=== PATIENT | female | born 2000 | race Caucasian/White ===

== ENCOUNTER → 2021-10-02 13:22 | Outpatient (CLI) | payer OTHER, SELFPAY ==
--- NOTE | ~2021-10-02 | US_ITS ---
EXAMINATION: US pelvic complete DATE: 10/02/2021 13:39 INDICATION: Amenorrhea Comparison:No prior studies for comparison. TECHNIQUE: Multiple transabdominal sonographic images of the pelvis performed. FINDINGS: The uterus measures 5.9 x 2.1 x 4.1 cm. The endometrial complex measures 4 mm. The right ovary measures 3.1 x 1.6 x 2.3 cm and the left ovary measures 2.4 x 1.7 x 2 cm. There are small follicles in each ovary. Normal doppler signal in both ovaries. There is no free fluid in the pelvis. There are no abnormal masses seen on either side. IMPRESSION: 1. Unremarkable pelvic ultrasound. Reviewed, dictated and finalized at location B.
== END ==
PROVIDERS: PCP Family Medicine; Visit Provider Obstetrics & Gynecology Gynecology
DX: N91.2 Amenorrhea, unspecified (principal)
CPT/HCPCS: 76856

== ENCOUNTER 2024-09-06 15:14 | Emergency (ER) | payer OTHER, SELFPAY ==
[2024-09-06 15:16] VITALS: BP 108/66; PULSE 87; RESP 16; TEMP 36.4; O2SAT 98
--- OUTSIDE RECORDS SUMMARY | 2024-09-06 15:16 | XMS_ITS | Encounter Summary ---
Author Organization [facility] Address [address] [place] [address] Care Team Providers Care Supervisor Cutting Department Name Role Phone Rachael Rojo MD Primary Care Provider Encounter Details Date Type Department Care Team (Late st Contact Info) Description 03/05/2020 Lab Requisition [facility] [address] [place] [id number] Porfirio Feng MD [address] [place] [address] Social History Tobacco Use Types Packs/Day Years Used Date Smoking Tobacco: Never Smokeless Tobacco: Never Alcohol Use Standard Drinks/Week Comments No 0 (1 standard drink = 0.6 oz pur e alcohol) Comments Unknown Sex and Gender Information Value Date Recorded Sex Assigned at Not on file Legal Sex Female 5:39 AM SANITATION LEAD Gender Identity Not on file Sexual Orientation Not on file documented as of this encounter Plan of Treatment Not on file documented as of this encounter Procedures Procedure Name Priority Date/Time Associated Diagnosis Comments DERMATOPATHOLOGY Routine 03/01/2020 3:27 AM SANITATION LEAD documented in this encounter Results * DERMATOPATHOLOGY (03/01/2020 3:27 AM SANITATION LEAD) Case Report Dermatopathology Report Case: [id number] Authorizing Provider: Porfirio Feng MD Collected: 03/01/2020 03:27 AM Ordering Location: [facility] Lab Received: 03/05/2020 06:06 AM Pathologist: Donna Peoples MD Specimen: Skin, left lower back 2:10 PM [facility] DERMATOPATHOLOGY LABORATORY Final Diagnosis Specimen A. SKIN, left lower back: COMPOUND MELANOCYTIC NEVUS (D22.5) 2:10 PM [facility] DERMATOPATHOLOGY LABORATORY at 1410 SANITATION LEAD Clinical History Nevus R/O atypia. Path # [id number]. 2:10 PM [facility]ERMAT[facility] Gross Description Specimen A: Received is one formalin filled container labeled with the patient's name and designated left lower back. The specimen consists of a shave biopsy measuring [id number], bisected. Jar 0. 2:10 PM [facility]ERMATOPATH[facility] Microscopic Description Specimen A. SKIN, left lower back: There are nests of melanocytes at the dermal-epidermal junction and within the dermis. 2:10 PM [facility] DERMATOPATHOLOGY [facility]OR[facility] Disclaimer An external and internal positive and negative controls are appropriate for the histochemical, immunohistochemical and immunofluorescence stain(s) in this case (if any), except where stated explicitly. The performance characteristics of the stain(s) cited in this report were developed and its performance characteristic determined by the Dermatopathology Laboratory at [facility], directed by Dr. Toshia Reid. These tests need not be, and therefore are not, approved by the [place] Food and Drug Administration. The tests are used for clinical purposes. Billing Codes Specimen Charges Stain Charges 72544 1 1 2:10 PM [facility]ERMATOPATH[facility] Embedded Images 2:10 PM [facility]MAT[facility] Pathology/Cytolo gy TISSUE SPECIMEN FROM SKIN / Unknown 03/01/2020 3:27 AM SANITATION LEAD 03/05/2020 6:06 AM SANITATION LEAD us Porfirio Feng MD LAB - PATHOLOGY/CYTOLOGY ORDER JIN Final Result DERMATOPATHOLOGY LABORATORY [facility] - Department of Dermatology [facility] Medicine [address] [place] [address], [address] [phone] documented in this encounter Visit Diagnoses Not on filedocumented in this encounter Care Teams Supervisor Cutting Department Relationship Specialty Start Date End Date Rachael Rojo MD [address] [place], [place] [id number] PCP - General 05/27/17 documented as of this encounter
--- OUTSIDE RECORDS SUMMARY | 2024-09-06 15:16 | XMS_ITS | Clinical Summary ---
Author Organization [facility] Address [address] [place] [address] Care Team Providers Care Plumbing Foreman Name Role Phone Rachael Rojo MD Primary Care Provider [phone] Source Comments [facility],non-owned Affiliates and Associated Physician Practices is amultiple site organization consisting of ambulatory clinics and hospital sitesin [place], [place], [place] and [place]. This disclosure is being madepursuant to the Care Everywhere program and may not contain all information available regarding this patient. Last updated 17.[facility] [employer] Allergies No known active allergies Medications * Be aware that medications may not be up to date on this document. Alwaysverify current medications with the patient. medroxyPROGESTE Ervin (DEPO-PROVERA) 150 MG/ML vial ADM 1 ML IM Q 12 WKS 0 04/07/2017 Active spironolactone (ALDACTONE) 50 MG tablet Take 2 tablets by mouth once daily 60 tablet 4 06/03/2017 Active tretinoin (RETIN-A) 0.025 % creamIndication s:Acne vulgaris Apply to affected area at bedtime Pea sized amount to entire face at night. 30 days supply. 45 g 11 06/03/2017 Active Active Problems Problem Noted Date Diagnosed Date Acne vulgaris 06/03/2017 Immunizations Immunization Administration Dates Next Due INFLUENZA VACCINE 02/15/2017 Social History Tobacco Use Types Packs/Day Years Used Date Smoking Tobacco: Never Smokeless Tobacco: Never Alcohol Use Standard Drinks/Week Comments No 0 (1 standard drink = 0.6 oz pur e alcohol) Comments Unknown Sex and Gender Information Value Date Recorded Sex Assigned at Not on file Legal Sex Female 5:39 AM ARMATURE STRAIGHTENER Gender Identity Not on file Sexual Orientation Not on file Last Filed Vital Signs Vital Sign Reading Time Taken Comments Blood Pressure 111/50 02/23/2014 1:38 PM ARMATURE STRAIGHTENER Pulse 88 02/23/2014 1:38 PM ARMATURE STRAIGHTENER Temperature 36.5 C (97.7 F) 02/23/2014 1:38 PM ARMATURE STRAIGHTENER Respiratory Rate 20 02/23/2014 1:38 PM ARMATURE STRAIGHTENER Oxygen Saturation 100% 02/23/2014 1:38 PM ARMATURE STRAIGHTENER Inhaled Oxygen Concentration - - Weight 57.6 kg (127 lb) 02/19/2016 9:27 AM ARMATURE STRAIGHTENER Height 170.2 cm (5' 7) 02/19/2016 9:27 AM ARMATURE STRAIGHTENER Body Mass Index 19.89 02/19/2016 9:27 AM ARMATURE STRAIGHTENER Plan of Treatment Health Maintenance Due Date Last Done Comments HIV SCREENING 07/03/2014 HPV VACCINE (1 - 3-dose series) 07/03/2014 CHLAMYDIA/GONORRHEA SCREENING 2015 HEPATITIS C SCREENING 06/29/2017 DTAP/TDAP/TD VACCINES (1 - Tdap) 07/03/2018 HEPATITIS B VACCINE (1 of 3 - 19+ 3-dose series) 07/03/2018 COVID-19 VACCINE (1 - 2023-2 5 season) 2023 DEPRESSION SCREENING 02/16/2024 INFLUENZA VACCINE (#1) 2024 02/15/2017 ZOSTER VACCINE (1 of 2) 07/03/2049 HIB VACCINE Aged Out No longer eligi ble based on patient's age to complete this topic MENINGOCOCCAL (Group B) VACC INE SHARED DECISION-MAKING Aged Out No longer eligibl e based on patient's age to complete this topic MENINGOCOCCAL GROUPS A/C/Y/W VACCINE Aged Out No longer eligible b ased on patient's age to complete this topic PNEUMOCOCCAL VACCINE Aged Out No long er eligible based on patient's age to complete this topic Insurance Member Subscriber Plan / Payer (Ef fective 2020-Present) Name:Li Tai R Relation to Subscriber:Child Name:CHANTELL TAI R Subscriber ID:Not on file Date of :1970 (Home) Address: [address] [place] [address] Payer ID:[id number] (NAIC) Type:HMO Address: [place] [id number] Member Subscriber Plan / Payer (Ef fective 2014-Present) Name:Li Tai R Member ID:Not on file Relation to Subscriber:Child Name:LI TAI Date of :1970 (Home) Address: [address] [place] [address] Payer ID:[id number] (NAIC) Type:HMO Address: [place] [id number] Care Teams Plumbing Foreman Relationship Specialty Start Date End Date Rachael Rojo MD [address] [place] [address] PCP - General 05/27/17
--- OUTSIDE RECORDS SUMMARY | 2024-09-06 15:42 | XMS_ITS | Clinical Summary ---
Author Organization [facility] Address [address] [facility] [address] [facility] [place] [address] Care Team Providers Care Diet Assistant Name Role Phone Rachael Rojo MD Primary Care Provider [phone] Source Comments [facility],non-owned Affiliates and Associated Physician Practices is amultiple site organization consisting of ambulatory clinics and hospital sitesin [place], [place], [place] and [place]. This disclosure is being madepursuant to the Care Everywhere program and may not contain all information available regarding this patient. Last updated 17.[facility] [employer] Allergies No known active allergies Medications * [...] on file Legal Sex Female 5:39 AM HEALTH AND WELLNESS INSTRUCTOR Gender Identity Not on file Sexual Orientation Not on file Last Filed Vital Signs Vital Sign Reading Time Taken Comments Blood Pressure 111/50 02/23/2014 1:38 PM HEALTH AND WELLNESS INSTRUCTOR Pulse 88 02/23/2014 1:38 PM HEALTH AND WELLNESS INSTRUCTOR Temperature 36.5 C (97.7 F) 02/23/2014 1:38 PM HEALTH AND WELLNESS INSTRUCTOR Respiratory Rate 20 02/23/2014 1:38 PM HEALTH AND WELLNESS INSTRUCTOR Oxygen Saturation 100% 02/23/2014 1:38 PM HEALTH AND WELLNESS INSTRUCTOR Inhaled Oxygen Concentration - - Weight 57.6 kg (127 lb) 02/19/2016 9:27 AM HEALTH AND WELLNESS INSTRUCTOR Height 170.2 cm (5' 7) 02/19/2016 9:27 AM HEALTH AND WELLNESS INSTRUCTOR Body Mass Index 19.89 02/19/2016 9:27 AM HEALTH AND WELLNESS INSTRUCTOR Plan of Treatment Health Maintenance Due Date [...] file Date of :1970 (Home) Address: [address] [place] [address] Payer ID:[id number] (NAIC) Type:HMO Address: [place] [id number] Member Subscriber Plan / Payer (Ef fective 2014-Present) Name:Li Tai R Member ID:Not on file Relation to Subscriber:Child Name:LI TAI Date of :1970 (Home) Address: [address] [place] [address] Payer ID:[id number] (NAIC) Type:HMO Address: [place] [id number] Care Teams Diet Assistant Relationship Specialty Start Date End Date Rachael Rojo MD [address] [place] [address] PCP - General 05/27/17
--- OUTSIDE RECORDS SUMMARY | 2024-09-06 15:42 | XMS_ITS | Encounter Summary ---
Author Organization [facility] Address [address] [facility] [place] [address] Care Team Providers Care Patient Safety Tech Name Role Phone Rachael Rojo MD Primary Care Provider Encounter Details Date Type Department Care Team (Late st Contact Info) Description 03/05/2020 Lab Requisition [facility] [address] [place] [phone] Porfirio Feng MD [address] [address] Social History Tobacco Use Types Packs/Day Years Used Date Smoking Tobacco: Never Smokeless Tobacco: Never Alcohol Use Standard Drinks/Week Comments No 0 (1 standard drink = 0.6 oz pur e alcohol) Comments Unknown Sex and Gender Information Value Date Recorded Sex Assigned at Not on file Legal Sex Female 5:39 AM WEBFED OFFSET PRESS OPERATOR Gender Identity Not on file Sexual Orientation Not on file documented as of this encounter Plan of Treatment Not on file documented as of this encounter Procedures Procedure Name Priority Date/Time Associated Diagnosis Comments DERMATOPATHOLOGY Routine 03/01/2020 3:27 AM WEBFED OFFSET PRESS OPERATOR documented in this encounter Results * DERMATOPATHOLOGY (03/01/2020 3:27 AM WEBFED OFFSET PRESS OPERATOR) Case Report Dermatopathology Report Case: [id number] Authorizing Provider: Porfirio Feng MD Collected: 03/01/2020 03:27 AM Ordering Location: [facility] Received: 03/05/2020 06:06 AM Pathologist: Donna Peoples MD Specimen: Skin, left lower back 2:10 PM [facility] DERMATOPATHOLOGY LABORATORY Final Diagnosis Specimen A. SKIN, left lower back: COMPOUND MELANOCYTIC NEVUS (D22.5) 2:10 PM [facility] DERMATOPATHOLOGY LABORATORY at 1410 WEBFED OFFSET PRESS OPERATOR Clinical History Nevus R/O atypia. Path # [id number]. 2:10 PM [facility] DERMATOPATHOLOGY LABORATORY Gross Description Specimen A: Received is one formalin filled container labeled with the patient's name and designated left lower back. The specimen consists of a shave biopsy measuring [id number], bisected. Jar 0. 2:10 PM [facility] DERMATOPATHOLOGY LABORATORY Microscopic Description Specimen A. SKIN, left lower back: There are nests of melanocytes at the dermal-epidermal junction and within the dermis. 2:10 PM [facility] DERMATOPATHOLOGY LABORATORY Disclaimer An external and internal positive and negative controls are appropriate for the histochemical, immunohistochemical and immunofluorescence stain(s) in this case (if any), except where stated explicitly. The performance characteristics of the stain(s) cited in this report were developed and its performance characteristic determined by the Dermatopathology Laboratory at [facility], directed by Dr. Toshia Reid. These tests need not be, and therefore are not, approved by the [place] Food and Drug Administration. The tests are used for clinical purposes. Billing Codes Specimen Charges Stain Charges 75234 1 1 2:10 PM [facility] DERMATOPATHOLOGY [facility]ORATORY Embedded Images 2:10 PM [facility] DERMATOPATHOLOGY LABORATORY Pathology/Cytolo gy TISSUE SPECIMEN FROM SKIN / Unknown 03/01/2020 3:27 AM WEBFED OFFSET PRESS OPERATOR 03/05/2020 6:06 AM WEBFED OFFSET PRESS OPERATOR us Porfirio Feng MD LAB - PATHOLOGY/CYTOLOGY ORDER JIN Final Result DERMATOPATHOLOGY LABORATORY [facility] - Department of Dermatology [facility] Medicine [address] [place] [address], [address] Floor [address] [phone] documented in this encounter Visit Diagnoses Not on filedocumented in this encounter Care Teams Patient Safety Tech Relationship Specialty Start Date End Date Rachael Rojo MD [address] [place], [place] [id number] PCP - General 05/27/17 documented as of this encounter
--- NOTE | 2024-09-06 18:17 | ED_ITS ---
HPI - General Adult General Chief complaint: Unspecified Stated complaint: sent by OB for fluids Time Seen by Provider: 09/06/24 15:15 Focused HPI: Patient is a 24 year female who presents to the ER with nausea and vomiting while . She reports she is approximately 14 weeks . Patient reports her OB advised her to come into the ER for evaluation and fluids. She denies any urinary frequency or urgency but reports her urine has been cloudy. Patient denies any abdominal pain, back pain, or abnormal vaginal discharge. GENERAL: Ill-appearing, well-nourished, and in no acute distress. HEAD: Normocephalic, atraumatic. CHEST: Clear to auscultation. ?No respiratory distress. HEART: Regular rate and rhythm.? NEURO: ?Alert and oriented x3. Patient screened in triage and initial orders placed.? ?Additional care and disposition to be based upon?diagnostic testing and treatment. Related Data Home Medications ?Medication ?Instructions ?Recorded ?Confirmed ?Last Taken ?Type multivitamin 1 tablet PO DAILY 04/06/24 08/10/24 Unknown History docosahexaenoic acid 200 mg mg PO 08/10/24 08/10/24 Unknown History capsule ( DHA) esomeprazole magnesium 20 mg 20 mg PO DAILY 08/10/24 08/10/24 Unknown History capsule,delayed release omega-3 fatty acids 500 mg capsule 500 mg PO DAILY 08/10/24 08/10/24 Unknown History Allergies Allergy/AdvReac Type Severity Reaction Status Date / Time No Known Allergies Allergy Unknown Verified 08/10/24 08:51 [facility] Past Medical History Medical History Blurry vision On [facility] drug therapy Encounter to establish care Persistent headaches BMI 23.0-23.9, adult Acne Herpes labialis hsv 1 Surgical History Surgical History H/O colposcopy with cervical biopsy 2022 benign Barto teeth extracted Social History Social History (Updated 08/10/24 @ 08:53 by Jimmy Martin MA) Smoking status: Never smoker Second hand tobacco smoke exposure: No Alcohol intake: former Drinks per week: 2 Alcohol use details: was social but currently none due to . 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 Gender identity (if verbalized by the patient): Female Sexual Orientation (if Verbalized by the Patient): Straight or Heterosexual Course Vital Signs Vital signs: Vital Signs Temperature 36.4 C 09/06/24 15:16 Pulse Rate 87 09/06/24 15:16 Respiratory Rate 16 09/06/24 15:16 Blood Pressure 108/66 09/06/24 15:16 Pulse Oximetry 98 09/06/24 15:16 Temperature 36.4 C 09/06/24 15:16 Pulse Rate 87 09/06/24 15:16 Respiratory Rate 16 09/06/24 15:16 Blood Pressure 108/66 09/06/24 15:16 Pulse Oximetry 98 09/06/24 15:16 Medical Decision Making Vital Signs Vital Signs: Vital Signs Temperature 36.4 C 09/06/24 15:16 Pulse Rate 87 09/06/24 15:16 Respiratory Rate 16 09/06/24 15:16 Blood Pressure 108/66 09/06/24 15:16 Pulse Oximetry 98 09/06/24 15:16 Temperature 36.4 C 09/06/24 15:16 Pulse Rate 87 09/06/24 15:16 Respiratory Rate 16 09/06/24 15:16 Blood Pressure 108/66 09/06/24 15:16 Pulse Oximetry 98 09/06/24 15:16 Discharge Plan Discharge Clinical Impression: Dehydration during Patient Disposition: Elopement After Seen by Prov Patient Language: Burundian Prescriptions: No Action multivitamin Tablet 1 tablet PO DAILY DHA 200 mg capsule PO omega-3 fatty acids 500 mg capsule 500 mg PO DAILY esomeprazole magnesium 20 mg capsule,delayed release(DR/EC) 20 mg PO DAILY metoclopramide HCl [Reglan] 10 mg tablet 10 mg PO Q6H PRN (Reason: nausea and vomiting) Qty: 40 2RF ondansetron 4 mg tablet,disintegrating 4 mg PO Q6H PRN (Reason: nausea and vomiting) Qty: 30 2RF Follow-up/Referrals: Gagandeep Ybarra MD [Primary Care Provider] -
== END 2024-09-06 15:41 | disposition left against medical advice (07) ==
LOC: ANHED 15:40
PROVIDERS: Emergency Provider Registered Nurse; PCP Family Medicine
DX: O99.281 Endocrine, nutritional and metabolic diseases complicating pregnancy, first trimester (principal); E86.0 Dehydration
CPT/HCPCS: 99281

== ENCOUNTER 2024-09-07 07:28 | Emergency (ER) | payer OTHER, SELFPAY ==
--- OUTSIDE RECORDS SUMMARY | 2024-09-07 07:31 | XMS_ITS | Clinical Summary ---
Author Organization [facility] Address [address] [place] [address] Care Team Providers Care Grocery Carrier Name Role Phone Rachael Rojo MD Primary Care Provider [phone] Source Comments [facility],non-owned Affiliates and Associated Physician Practices is amultiple site organization consisting of ambulatory clinics and hospital sitesin [place], [place], [place] and [place]. This disclosure is being madepursuant to the Care Everywhere program and may not contain all information available regarding this patient. Last updated 17.[facility] [employer] Allergies No known active allergies Medications * [...] on file Legal Sex Female 5:39 AM DRAW PRESS OPERATOR Gender Identity Not on file Sexual Orientation Not on file Last Filed Vital Signs Vital Sign Reading Time Taken Comments Blood Pressure 111/50 02/23/2014 1:38 PM DRAW PRESS OPERATOR Pulse 88 02/23/2014 1:38 PM DRAW PRESS OPERATOR Temperature 36.5 C (97.7 F) 02/23/2014 1:38 PM DRAW PRESS OPERATOR Respiratory Rate 20 02/23/2014 1:38 PM DRAW PRESS OPERATOR Oxygen Saturation 100% 02/23/2014 1:38 PM DRAW PRESS OPERATOR Inhaled Oxygen Concentration - - Weight 57.6 kg (127 lb) 02/19/2016 9:27 AM DRAW PRESS OPERATOR Height 170.2 cm (5' 7) 02/19/2016 9:27 AM DRAW PRESS OPERATOR Body Mass Index 19.89 02/19/2016 9:27 AM DRAW PRESS OPERATOR Plan of Treatment Health Maintenance Due Date [...] file Date of :1970 (Home) Address: [address] [place] [address] Payer ID:[id number] (NAIC) Type:HMO Address: [place] [id number] Member Subscriber Plan / Payer (Ef fective 2014-Present) Name:Li Tai R Member ID:Not on file Relation to Subscriber:Child Name:LI TAI Date of :1970 (Home) Address: [address] [place] [address] Payer ID:[id number] (NAIC) Type:HMO Address: [place] [id number] Care Teams Grocery Carrier Relationship Specialty Start Date End Date Rachael Rojo MD [address] [place] [address] PCP - General 05/27/17
--- OUTSIDE RECORDS SUMMARY | 2024-09-07 07:31 | XMS_ITS | Encounter Summary ---
Author Organization [facility] Address [address] [place] [address] Care Team Providers Care Instrument Processing Tech Name Role Phone Rachael Rojo MD Primary Care Provider Encounter Details Date Type Department Care Team (Late st Contact Info) Description 03/05/2020 Lab Requisition [facility] [address] [place] [phone] Porfirio Feng MD [address] [address] Social History Tobacco Use Types Packs/Day Years Used Date Smoking Tobacco: Never Smokeless Tobacco: Never Alcohol Use Standard Drinks/Week Comments No 0 (1 standard drink = 0.6 oz pur e alcohol) Comments Unknown Sex and Gender Information Value Date Recorded Sex Assigned at Not on file Legal Sex Female 5:39 AM RADIO RECORDER Gender Identity Not on file Sexual Orientation Not on file documented as of this encounter Plan of Treatment Not on file documented as of this encounter Procedures Procedure Name Priority Date/Time Associated Diagnosis Comments DERMATOPATHOLOGY Routine 03/01/2020 3:27 AM RADIO RECORDER documented in this encounter Results * DERMATOPATHOLOGY (03/01/2020 3:27 AM RADIO RECORDER) Case Report Dermatopathology Report Case: [id number] Authorizing Provider: Porfirio Feng MD Collected: 03/01/2020 03:27 AM Ordering Location: [facility]erm[facility] Lab Received: 03/05/2020 06:06 AM Pathologist: Donna Peoples MD Specimen: Skin, left lower back 2:10 PM [facility] DERMATOPATHOLOGY LABORATORY Final Diagnosis Specimen A. SKIN, left lower back: COMPOUND MELANOCYTIC NEVUS (D22.5) 2:10 PM [facility] DERMATOPATHOLOGY LABORATORY at 1410 RADIO RECORDER Clinical History Nevus R/O atypia. Path # [id number]. 2:10 PM [facility] DERMATOPATHOLOGY [facility]ORAT[facility] Gross Description Specimen A: Received is one formalin filled container labeled with the patient's name and designated left lower back. The specimen consists of a shave biopsy measuring [id number], bisected. Jar 0. 2:10 PM [facility] DERMATOPATHOLOGY LABORATORY Microscopic Description Specimen A. SKIN, left lower back: There are nests of melanocytes at the dermal-epidermal junction and within the dermis. 2:10 PM [facility] DERMATOPATHOLOGY [facility]ORATORY Disclaimer An external and internal positive and negative controls are appropriate for the histochemical, immunohistochemical and immunofluorescence stain(s) in this case (if any), except where stated explicitly. The performance characteristics of the stain(s) cited in this report were developed and its performance characteristic determined by the Dermatopathology Laboratory at [facility], directed by Dr. Toshia Reid. These tests need not be, and therefore are not, approved by the [place] Food and Drug Administration. The tests are used for clinical purposes. Billing Codes Specimen Charges Stain Charges 31373 1 1 2:10 PM [facility] DERMATOPATHOLOGY [facility]ORATORY Embedded Images 2:10 PM [facility]ERMATOPATHOLOGY [facility]ORY Pathology/Cytolo gy TISSUE SPECIMEN FROM SKIN / Unknown 03/01/2020 3:27 AM RADIO RECORDER 03/05/2020 6:06 AM RADIO RECORDER us Porfirio eFng MD LAB - PATHOLOGY/CYTOLOGY ORDER JIN Final Result DERMATOPATHOLOGY LABORATORY [facility] - Department of Dermatology [facility] Medicine [address] [place] [address], [address] [phone] documented in this encounter Visit Diagnoses Not on filedocumented in this encounter Care Teams Instrument Processing Tech Relationship Specialty Start Date End Date Rachael Rojo MD [address] [place], [place] [id number] PCP - General 05/27/17 documented as of this encounter
[2024-09-07 07:47] VITALS: BP 100/64; PULSE 79; RESP 18; TEMP 36.8; O2SAT 98
[2024-09-07 08:39] VITALS: BP 102/57; PULSE 69; RESP 20; O2SAT 99
[2024-09-07 08:55] LABS: Hematocrit 39.2 % (37.0-47.0); Hemoglobin 14.0 g/dL (12.0-15.0); Immature Granulocyte Percent A 0.8 % (0-0.5); Lymphocytes Absolute Auto 1.63 K/mm3 (0.9-3.2); Mean Corpuscular HGB Conc 35.7 g/dl (32-36); Mean Corpuscular Hemoglobin 31.5 pg (26-34); Mean Corpuscular Volume 88.1 fl (80-100); Nucleated Red Blood Cells Absolute Auto 0.000 K/mm3 (0.0-0.012); Nucleated Red Blood Cells Perc 0.0 % (0.0-0.2); Platelet Count Result 219 k/mm3 (150-375); Red Blood Count 4.45 M/mm3 (4.2-5.4); White Blood Count 10.1 K/mm3 (4.5-10.0)
[2024-09-07] MEDS: DEXTROSE 5%/LACTATED RINGERS 1,000 ML 999 ML IV CONT (08:58)
--- OUTSIDE RECORDS SUMMARY | 2024-09-07 08:58 | XMS_ITS | Clinical Summary ---
Author Organization [facility] Address [address] [place] [address] Care Team Providers Care Warrant Clerk Name Role Phone Rachael Rojo MD Primary Care Provider [phone] Source Comments [facility],non-owned Affiliates and Associated Physician Practices is amultiple site organization consisting of ambulatory clinics and hospital sitesin [place], [place], [place] and [place]. This disclosure is being madepursuant to the Care Everywhere program and may not contain all information available regarding this patient. Last updated 17.[facility] Allergies No known active allergies Medications * [...] on file Legal Sex Female 5:39 AM CELLULOSE INSULATION HELPER Gender Identity Not on file Sexual Orientation Not on file Last Filed Vital Signs Vital Sign Reading Time Taken Comments Blood Pressure 111/50 02/23/2014 1:38 PM CELLULOSE INSULATION HELPER Pulse 88 02/23/2014 1:38 PM CELLULOSE INSULATION HELPER Temperature 36.5 C (97.7 F) 02/23/2014 1:38 PM CELLULOSE INSULATION HELPER Respiratory Rate 20 02/23/2014 1:38 PM CELLULOSE INSULATION HELPER Oxygen Saturation 100% 02/23/2014 1:38 PM CELLULOSE INSULATION HELPER Inhaled Oxygen Concentration - - Weight 57.6 kg (127 lb) 02/19/2016 9:27 AM CELLULOSE INSULATION HELPER Height 170.2 cm (5' 7) 02/19/2016 9:27 AM CELLULOSE INSULATION HELPER Body Mass Index 19.89 02/19/2016 9:27 AM CELLULOSE INSULATION HELPER Plan of Treatment Health Maintenance Due Date [...] file Date of :1970 (Home) Address: [address] [place] [address] Payer ID:[id number] (NAIC) Type:HMO Address: [place] [id number] Member Subscriber Plan / Payer (Ef fective 2014-Present) Name:Li Tai R Member ID:Not on file Relation to Subscriber:Child Name:LI TAI Date of :1970 (Home) Address: [address] [place] [address] Payer ID:[id number] (NAIC) Type:HMO Address: [place] [phone] Care Teams Warrant Clerk Relationship Specialty Start Date End Date Rachael Rojo MD [address] [place] [address] PCP - General 05/27/17
--- OUTSIDE RECORDS SUMMARY | 2024-09-07 08:58 | XMS_ITS | Encounter Summary ---
Author Organization [facility] Address [address] [place] [address] Care Team Providers Care Lead Php Developer Name Role Phone Rachael Rojo MD Primary Care Provider Encounter Details Date Type Department Care Team (Late st Contact Info) Description 03/05/2020 Lab Requisition [facility] [address] [place] [phone] Porfirio Feng MD [address] [address] Social History Tobacco Use Types Packs/Day Years Used Date Smoking Tobacco: Never Smokeless Tobacco: Never Alcohol Use Standard Drinks/Week Comments No 0 (1 standard drink = 0.6 oz pur e alcohol) Comments Unknown Sex and Gender Information Value Date Recorded Sex Assigned at Not on file Legal Sex Female 5:39 AM BYPRODUCTS EXTRACTOR Gender Identity Not on file Sexual Orientation Not on file documented as of this encounter Plan of Treatment Not on file documented as of this encounter Procedures Procedure Name Priority Date/Time Associated Diagnosis Comments DERMATOPATHOLOGY Routine 03/01/2020 3:27 AM BYPRODUCTS EXTRACTOR documented in this encounter Results * DERMATOPATHOLOGY (03/01/2020 3:27 AM BYPRODUCTS EXTRACTOR) Case Report Dermatopathology Report Case: [id number] Authorizing Provider: Porfirio Feng MD Collected: 03/01/2020 03:27 AM Ordering Location: [facility] Lab Received: 03/05/2020 06:06 AM Pathologist: Donna Peoples MD Specimen: Skin, left lower back 2:10 PM [facility] DERMATOPATHOLOGY LABORATORY Final Diagnosis Specimen A. SKIN, left lower back: COMPOUND MELANOCYTIC NEVUS (D22.5) 2:10 PM [facility] DERMATOPATHOLOGY LABORATORY at 1410 BYPRODUCTS EXTRACTOR Clinical History Nevus R/O atypia. Path # [id number]. 2:10 PM [facility] DERMATOPATHOLOGY [facility]ORAT[facility] Gross Description Specimen A: Received is one formalin filled container labeled with the patient's name and designated left lower back. The specimen consists of a shave biopsy measuring 5x7m1cw, bisected. Jar 0. 2:10 PM [facility] DERMATOPATHOLOGY LABORATORY Microscopic Description Specimen A. SKIN, left lower back: There are nests of melanocytes at the dermal-epidermal junction and within the dermis. 2:10 PM [facility] DERMATOPATHOLOGY LABORATORY Disclaimer An external and internal positive and negative controls are appropriate for the histochemical, immunohistochemical and immunofluorescence stain(s) in this case (if any), except where stated explicitly. The performance characteristics of the stain(s) cited in this report were developed and its performance characteristic determined by the Dermatopathology Laboratory at [facility], directed by Dr. Toshia Reid. These tests need not be, and therefore are not, approved by the [place] Food and Drug Administration. The tests are used for clinical purposes. Billing Codes Specimen Charges Stain Charges 52956 1 1 2:10 PM [facility] DERMATOPATHOLOGY LABORATORY Embedded Images 2:10 PM [facility] DERMATOPATHOLOGY LABORATORY Pathology/Cytolo gy TISSUE SPECIMEN FROM SKIN / Unknown 03/01/2020 3:27 AM BYPRODUCTS EXTRACTOR 03/05/2020 6:06 AM BYPRODUCTS EXTRACTOR us Porfirio Feng MD LAB - PATHOLOGY/CYTOLOGY ORDER JIN Final Result DERMATOPATHOLOGY LABORATORY [facility] - Department of Dermatology [facility] Medicine [address] [place] [address], [address] [phone] documented in this encounter Visit Diagnoses Not on filedocumented in this encounter Care Teams Lead Php Developer Relationship Specialty Start Date End Date Rachael Rojo MD [address] [place], [place] [phone] PCP - General 05/27/17 documented as of this encounter
[2024-09-07] MEDS: ONDANSETRON INJ 4 MG/2 ML VIAL IV PUSH (08:59)
[2024-09-07 09:16] LABS: Alanine Aminotransferase 19 U/L (6-35); Albumin Level 4.5 g/dL (3.5-5.1); Alkaline Phosphatase 47 U/L (38-126); Anion Gap 11 mmol/L (4-12); Aspartate Amino Transferase 27 U/L (14-36); Bilirubin,Total 0.4 mg/dL (0.2-1.3); Blood Urea Nitrogen 7 mg/dL (7-17); Calcium 9.7 mg/dL (8.4-10.2); Carbon Dioxide 21 mmol/L (22-30); Chloride 104 mmol/L (98-107); Estimated CRCL calculation 137 ml/min; Estimated Glomerular Filt Rate > 60; Glucose 89 mg/dL (65-110); Potassium 3.8 mmol/L (3.4-5.0); Sodium 136 mmol/L (137-145); Total Protein 7.7 g/dL (6.3-8.2)
--- NOTE | 2024-09-07 10:01 | ED.NAVMDI ---
HPI - Nausea/Vomiting/Diarrhea General Chief complaint: Nausea/Vomiting/Diarrhea Stated complaint: sent by OB for vomiting Time Seen by Provider: 09/07/24 08:28 History of Present Illness HPI Narrative: Pt is 9 weeks and is having persistent vomiting and not able to keep anything down. Pt was told by OB to come get fluids. Pt denies abdominal pain or bleeding. Related Data Home Medications ?Medication ?Instructions ?Recorded ?Confirmed ?Last Taken ?Type multivitamin 1 tablet PO DAILY 04/06/24 08/10/24 Unknown History docosahexaenoic acid 200 mg mg PO 08/10/24 08/10/24 Unknown History capsule ( DHA) esomeprazole magnesium 20 mg 20 mg PO DAILY 08/10/24 08/10/24 Unknown History capsule,delayed release omega-3 fatty acids 500 mg capsule 500 mg PO DAILY 08/10/24 08/10/24 Unknown History Allergies Allergy/AdvReac Type Severity Reaction Status Date / Time No Known Allergies Allergy Unknown Verified 08/10/24 08:51 Review of Systems Review of Systems: All systems reviewed & are unremarkable except as noted in HPI and below PMFSH Past Medical History Medical History Blurry vision 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 Gender identity (if verbalized by the patient): Female Sexual Orientation (if Verbalized by the Patient): Straight or Heterosexual Exam Const: General: cooperative and healthy appearing Nutritional Appearance: average body habitus Orientation/consciousness: patient oriented x3 Limitations: no limitations HENMT: Mouth: Yes Normal oral and palatal mucosa present Throat: posterior oropharynx normal Neck: Neck: normal visual inspection Chest: Chest palpation & inspection: normal inspection of the chest Resp: Effort & Inspection: normal respiratory effort Auscultation: clear to auscultation bilaterally Cardio: Rate: regular rate Rhythm: regular rhythm GI: Inspection: normal to inspection GI Palp: Yes abdominal tenderness Auscultation: normal bowel sounds Back/Spine/Pelvis: Back: no CVA tenderness Skin: General skin exam: normal color and no rashes or lesions noted Neuro: General: patient oriented x3 and no focal motor deficits Extrem: General: normal to inspection, full ROM and no clubbing, cyanosis or edema Psych: Appearance: grossly normal Mental Status: mental status grossly normal Speech and movement: Normal speech and movement present Affect: normal affect Attitude: cooperative Course Vital Signs Vital signs: Vital Signs Temperature 98.3 F 09/07/24 07:47 Pulse Rate 79 09/07/24 07:47 Respiratory Rate 18 09/07/24 07:47 Blood Pressure 100/64 09/07/24 07:47 Pulse Oximetry 98 09/07/24 07:47 Oxygen Delivery Room Air 09/07/24 07:47 Temperature 98.3 F 09/07/24 07:47 Pulse Rate 60 09/07/24 11:20 Respiratory Rate 22 H 09/07/24 11:20 Blood Pressure 96/61 L 09/07/24 11:20 Pulse Oximetry 98 09/07/24 11:20 Oxygen Delivery Room Air 09/07/24 08:39 MDM - Nausea/Vomiting/Diarrhea MDM Narrative Medical decision making narrative: Pt with persistent vomiting likely hyperemesis. will give some fluids and zofran and check labs and ua. Pt has uti. feels better after fluids and zofran.. Pt thinks odt zofran may be triggering nausea so will try tabs and keflex for uti. Lab Data 09/07/24 08:50 09/07/24 08:50 Labs: Lab Results 07/24/25 07/24/25 Range/Units 08:50 10:19 WBC 10.1 H (4.5-10.0) K/mm3 RBC 4.45 (4.2-5.4) M/mm3 Hgb 14.0 (12.0-15.0) g/dL Hct 39.2 (37.0-47.0) % MCV 88.1 (80-100) fl MCH 31.5 (26-34) pg MCHC 35.7 (32-36) g/dl RDW 11.8 (11.5-14.5) % Plt Count 219 (150-375) k/mm3 MPV 9.8 (7.4-10.4) fl Immature Gran % (Auto) 0.8 H (0-0.5) % Neut % (Auto) 73.1 (45.5-73.1) % Lymph % (Auto) 16.1 L (18.3-44.2) % Placer % (Auto) 7.5 (2.6-8.5) % Eos % (Auto) 2.1 (0-4.4) % Baso % (Auto) 0.4 (0.2-1.2) % Lymph # (Auto) 1.63 (0.9-3.2) K/mm3 Placer # (Auto) 0.8 H (0.1-0.6) K/mm3 Eos # (Auto) 0.2 (0-0.3) K/mm3 Baso # (Auto) 0.0 (0.0-0.1) K/mm3 Abs Immat Gran (auto) 0.08 H (0.00-0.031) K/mm3 Absolute Neuts (auto) 7.4 H (1.3-6.7) K/mm3 Absolute Nucleated RBC 0.000 (0.0-0.012) K/mm3 Nucleated RBC % 0.0 (0.0-0.2) % Sodium 136 L (137-145) mmol/L Potassium 3.8 (3.4-5.0) mmol/L Chloride 104 (98-107) mmol/L Carbon Dioxide 21 L (22-30) mmol/L Anion Gap 11 (4-12) mmol/L BUN 7 (7-17) mg/dL Creatinine 0.51 L (0.7-1.0) mg/dL Estim Creat Clear Calc 137 ml/min Estimated GFR > 60 (59 - ) Glucose 89 (65-110) mg/dL Calcium 9.7 (8.4-10.2) mg/dL Total Bilirubin 0.4 (0.2-1.3) mg/dL AST 27 (14-36) U/L ALT 19 (6-35) U/L Alkaline Phosphatase 47 (38-126) U/L Total Protein 7.7 (6.3-8.2) g/dL Albumin 4.5 (3.5-5.1) g/dL Urine Color Yellow (Yellow) Urine Appearance Clear (Clear) Urine pH 6.5 (5.0-9.0) Ur Specific [place] 1.017 (1.001-1.035) Urine Protein Negative (Negative) mg/dL Urine Glucose (UA) 3+ H (Negative) mg/dL Urine Ketones Negative (Negative) mg/dL Ur Blood (Man) Negative (Negative) Urine Nitrate Negative (Negative) Urine Bilirubin Negative (Negative) Urine Urobilinogen 0.2 (<2.0) mg/dL Leukocyte Esterase Rfl 1+ H (Negative) KENDAL/UL Urine RBC 0-2 (0-2) /hpf Urine WBC 6-10 H (0-3) /hpf Ur Squamous Epith Cells Occasional (Few) /hpf Urine Bacteria Rare /hpf Urine Casts 0-2 Discharge Plan Discharge Clinical Impression: Hyperemesis gravidarum, UTI (urinary tract infection) Patient Disposition: Home Condition: Improved Instructions: Antibiotic Form, Hyperemesis Gravidarum (ED), Urinary Tract Infection in (ED) Patient Language: Montserratian Prescriptions: New cephalexin 500 mg capsule 500 mg PO Q8H Qty: 15 0RF ondansetron HCl 4 mg tablet 4 mg PO Q8H PRN (Reason: nausea and vomiting) Qty: 14 0RF No Action multivitamin Tablet 1 tablet PO DAILY DHA 200 mg capsule PO omega-3 fatty acids 500 mg capsule 500 mg PO DAILY esomeprazole magnesium 20 mg capsule,delayed release(DR/EC) 20 mg PO DAILY metoclopramide HCl [Reglan] 10 mg tablet 10 mg PO Q6H PRN (Reason: nausea and vomiting) Qty: 40 2RF ondansetron 4 mg tablet,disintegrating 4 mg PO Q6H PRN (Reason: nausea and vomiting) Qty: 30 2RF Follow-up/Referrals: Gagandeep Ybarra MD [Primary Care Provider] -
[2024-09-07] MEDS: LACTATED RINGERS 1,000 ML 999 ML IV CONT (10:03)
--- NOTE | 2024-09-07 10:07 | PC.NURSE ---
Pt taking ice chips at this time. Denies nausea
[2024-09-07 10:21] VITALS: BP 112/71; PULSE 70; RESP 20; O2SAT 100
[2024-09-07 10:35] LABS: Add Urine Microscopic? YES; Appearance Urine Clear (Clear); Glucose Urine UA 3+ mg/dL (Negative); Leukocyte Esterase Ur 1+ LEU/UL (Negative); Nitrate Urine Negative (Negative); Non Pathogenic Casts 0-2; Specific Grav Ur 1.017 (1.001-1.035)
[2024-09-07 11:20] VITALS: BP 96/61; PULSE 60; RESP 22; O2SAT 98
== END 2024-09-07 11:26 | disposition home or self-care (01) ==
PROVIDERS: Emergency Provider Emergency Medicine; PCP Family Medicine
DX: O21.0 Mild hyperemesis gravidarum (principal); Z3A.09 9 weeks gestation of pregnancy; O23.41 Unspecified infection of urinary tract in pregnancy, first trimester; N39.0 Urinary tract infection, site not specified
CPT/HCPCS: 36415; 80053; 81001; 85025; 87086; 96361; 96374; 99284; J2405; J7120; J7121

== ENCOUNTER 2025-02-08 09:05 | Observation (INO) | payer OTHER, BC, SELFPAY ==
[2025-02-08] VITALS (67 sets, daily range): BP systolic 88–114; BP diastolic 35–70; PULSE 105–133; TEMP 37.2–38.4; O2SAT 96–100; BMI 28.3
[2025-02-08] MEDS: LACTATED RINGERS 1,000 ML 999 ML IV CONT (09:37)
[2025-02-08] MEDS: ONDANSETRON INJ 4 MG/2 ML VIAL IV PUSH ×2 (09:38→10:41)
[2025-02-08 09:45] LABS: Hematocrit 34.4 % (37.0-47.0); Hemoglobin 11.8 g/dL (12.0-15.0); Mean Corpuscular HGB Conc 34.3 g/dl (32-36); Mean Corpuscular Hemoglobin 31.6 pg (26-34); Mean Corpuscular Volume 92.0 fl (80-100); Platelet Count Result 163 k/mm3 (150-375); Red Blood Count 3.74 M/mm3 (4.2-5.4); White Blood Count 12.7 K/mm3 (4.5-10.0)
[2025-02-08 10:05] LABS: Alanine Aminotransferase 27 U/L (6-35); Albumin Level 3.5 g/dL (3.5-5.1); Alkaline Phosphatase 110 U/L (38-126); Anion Gap 9 mmol/L (4-12); Aspartate Amino Transferase 32 U/L (14-36); Bilirubin,Total 0.6 mg/dL (0.2-1.3); Blood Urea Nitrogen 9 mg/dL (7-17); Calcium 8.3 mg/dL (8.4-10.2); Carbon Dioxide 19 mmol/L (22-30); Chloride 108 mmol/L (98-107); Estimated CRCL calculation 161 ml/min; Estimated Glomerular Filt Rate > 60; Glucose 118 mg/dL (65-110); Potassium 3.0 mmol/L (3.4-5.0); Sodium 136 mmol/L (137-145); Total Protein 6.7 g/dL (6.3-8.2)
[2025-02-08 10:13] LABS: Band Neutrophils Percent 16 % (0-6); Lymphocytes Absolute Manual 0.12 K/mm3 (1.1-4.5); Lymphocytes Percent Manual 1 % (18-44); Monocytes Absolute Manual 1.01 K/mm3 (0.1-0.90); Monocytes Percent Manual 8 % (3-9); Neutrophils Absolute Manual 11.55 K/mm3 (1.3-6.7); Neutrophils Percent Manual 75 % (46-73); Schistocytes None Seen; Total Cells Counted 100
[2025-02-08] MEDS: LACTATED RINGERS 1,000 ML 500 ML IV CONT (10:40)
--- NOTE | 2025-02-08 10:49 | PC.NURSE ---
1018- RN notified Dr. Menard of lab results. RN notified MD of VS and FHT tracing as well as uterine activity. RN notified MD that patient states she is feeling a little better, but still nauseous. RN also notified MD that patient has been able to keep ice chips down since being here and that RN gave patient ice water and instructed her to take small sips and gave patient crackers. MD gave additional orders, see MAR. MD also gave orders to take patient off of FHR monitor. MD gave orders to d/c patient to home if she is able to keep PO medication and crackers down and if she is feeling better after additional IV fluids. 1030- RN at bedside. Patient eating crackers and drinking water. Patient tolerating well.
[2025-02-08] MEDS: POTASSIUM CHLORIDE 20 MEQ ER TABLET PO (11:10)
--- NOTE | 2025-02-08 11:14 | PC.NURSE ---
1110- Patient able to keep three packages of saltine crackers down PO as well as 250ml of ice water and two cups of ice chips.
--- NOTE | 2025-02-08 11:47 | PC.NURSE ---
1130-RN gave patient juice and apple sauce.
--- NOTE | 2025-02-08 13:00 | PC.NURSE ---
1357- RN at bedside discussing plan of care with patient, all questions answered. Patient agrees with plan of care.
[2025-02-08] MEDS: DEXTROSE 5%/LACTATED RINGERS 1,000 ML 500 ML IV CONT (13:04)
[2025-02-08] MEDS: ACETAMINOPHEN 500 MG TABLET 1000 MG PO (13:17)
[2025-02-08 13:53] LABS: Influenza A QL RT-PCR Negative (Negative); Influenza B QL RT-PCR Negative (Negative); RSV RNA, RT-PCR Negative (Negative); SARS-CoV-2 RNA PCR Positive (Negative)
--- NOTE | 2025-02-08 14:18 | PC.NURSE ---
1354- RN notified Dr Menard of lab results, as well as patient's VS and that tylenol was already given for her headache. MD gave orders to d/c patient after fluids are finished and go over covid precautions with patient.
--- NOTE | 2025-02-08 14:22 | PC.NURSE ---
Report given to Toshia Gray RN
--- NOTE | 2025-02-08 14:39 | OBADM ---
This patient, Li Tai, admitted to the OB room OB Post 117 for observation. Patient/family oriented to hospital policies and general routines including ID bracelet, bed and alarms, visiting hours, pain management, procedures, bathroom and other care routines, personal items, smoking policy, room service/diet, and visiting hours. Patient/Family are encouraged to report perceived risks to care and to ask questions if they do not understand what they are told or what they should do.
--- NOTE | 2025-02-12 07:57 | PM.OBTRLD ---
OB - Triage/Final Diagnosis Visit Information Date of evaluation: 02/08/25 Reason for evaluation: decreased movement Comments/Additional reasons for admission: I have assessed the risk for this patient, Li Tai, and determined that she would benefit from observation care. Evaluation Laboratory results: Laboratory Tests 02/08/25 02/08/25 09:40 13:13 WBC 12.7 H RBC 3.74 L Hgb 11.8 L Hct 34.4 L MCV 92.0 MCH 31.6 MCHC 34.3 RDW 12.1 Plt Count 163 MPV 10.3 Immature Gran % (Auto) Not Reportable Neut % (Auto) Not Reportable Lymph % (Auto) Not Reportable [place] % (Auto) Not Reportable Eos % (Auto) Not Reportable Baso % (Auto) Not Reportable Lymph # (Auto) Not Reportable [place] # (Auto) Not Reportable Eos # (Auto) Not Reportable Baso # (Auto) Not Reportable Abs Immat Gran (auto) Not Reportable Absolute Neuts (auto) Not Reportable Absolute Nucleated RBC Not Reportable Total Counted 100 Neutrophils % (Manual) 75 H Band Neutrophils % 16 H Lymphocytes % (Manual) 1 L Monocytes % (Manual) 8 Nucleated RBC % Not Reportable Abs Neuts (Manual) 11.55 H Abs Lymphs (Manual) 0.12 L Abs Monocytes (Manual) 1.01 H Platelet Estimate Adequate Schistocytes None seen Sodium 136 L Potassium 3.0 L Chloride 108 H Carbon Dioxide 19 L Anion Gap 9 BUN 9 Creatinine 0.49 L Estim Creat Clear Calc 161 Estimated GFR > 60 Glucose 118 H Calcium 8.3 L Total Bilirubin 0.6 AST 32 ALT 27 Alkaline Phosphatase 110 Total Protein 6.7 Albumin 3.5 Influenza A (RT-PCR) Negative Influenza B (RT-PCR) Negative RSV (RT-PCR) Negative SARS-CoV-2 RNA (RT-PCR) Positive A
== END 2025-02-08 15:12 | disposition home or self-care (01) ==
PROVIDERS: Admitting Provider Student in an Organized Health Care Education/Training Program; PCP Family Medicine; Visit Provider Student in an Organized Health Care Education/Training Program
DX: O36.8130 Decreased fetal movements, third trimester, not applicable or unspecified (principal); Z3A.31 31 weeks gestation of pregnancy; Z20.822 Contact with and (suspected) exposure to COVID-19
CPT/HCPCS: 36415; 59025; 80053; 85025; 87637; 96374; 96376; A9270; G0378; G0379; J2405; J7120; J7121